=== PATIENT | male | born 1965 | race Caucasian/White ===

== ENCOUNTER 2023-02-23 15:37 | Inpatient (IN) ==
[2023-02-23 16:47] LABS: Basophils # (auto) 0.03 K/uL (0-0.2); Basophils % (auto) 0.4 %; Eosinophils # (auto) 0.12 K/uL (0-0.50); Eosinophils % (auto) 1.5 %; Hematocrit (blood only) 39.9 % (42.0-52.0); Hemoglobin 13.4 g/dl (14.0-18.0); Immature Granulocytes # (auto) 0.02 K/uL (0.01-0.20); Immature Granulocytes % (auto) 0.2 %; Lymphocytes # (auto) 2.04 K/uL (1.2-3.4); Lymphocytes % (auto) 24.8 %; Mean Corpuscular Hemoglobin 32.1 pg (25.0-34.0); Mean Corpuscular Hgb Conc 33.6 g/dL (32.0-36.0); Mean Corpuscular Volume 95.5 fL (80.0-100.0); Mean Platelet Volume 10.5 fL (9.4-12.4); Monocytes # (auto) 0.89 K/uL (0.11-0.59); Monocytes % (auto) 10.8 %; Neutrophils # (auto) 5.11 K/uL (1.40-6.50); Neutrophils % (auto) 62.3 %; Platelet Count 212 K/uL (130-400); RDW Coefficient of Variation 12.6 % (11.5-14.5); RDW Standard Deviation 44.8 fL (36.4-46.3); Red Blood Count 4.18 M/uL (4.70-6.10); White Blood Count 8.21 K/ul (4.8-10.8)
[2023-02-23 17:07] LABS: Albumin Globulin Ratio 1.4 (0.9-2); Albumin Level 4.1 gm/dl (3.4-5.0); Bilirubin,Total 0.2 mg/dl (0.2-1.0); Calcium 8.8 mg/dl (8.6-10.3); Creatinine Clr Calc Pharmacy 103.4 ml/min; Est GFR (African American) 103.8 ml/min; Est GFR (Non-African American) 89.5 ml/min; Globulin 2.9 gm/dl (2.5-4.0); Potassium 4.2 mmol/L (3.5-5.1)
[2023-02-23 17:13] LABS: Troponin I High Sensitivity 4.3 pg/ml (0-20)
[2023-02-23 17:15] LABS: Partial Thromboplastin Ratio 1.1; Partial Thromboplastin Time 29.8 Seconds (21.0-31.0); Prothrombin Time 10.5 Seconds (9.0-12.0)
--- NOTE | 2023-02-23 18:13 | XRay Report ---
SINGLE VIEW CHEST CLINICAL HISTORY: Atypical chest pain. FINDINGS: An AP, portable, upright chest radiograph is obtained. No prior studies are available for c omparison at the time of dictation. The heart is enlarged. There is pulmonary vascular congestion. Bi basilar opacities likely represent scarring/atelectasis. No large pleural effusion or pneumothorax is seen. The skeletal structures are osteopenic. The bony thorax is grossly intact. Fusion hardware is noted in the lower cervical spine. IMPRESSION: 1. Cardiomegaly with pulmonary vascular congestion. 2. Bibasilar opacities likely represent scarring/atelectasis. Clinical correlation will be required. ACT 112: Negative or not required by law. Electronically signed by: Rodrigo Barahona M.D. 02/23/2023 6:12 PM
[2023-02-23] MEDS ORDERED: ONDANSETRON INJ 2 MG/ML 2 ML VIAL IV STA (18:43)
--- NOTE | 2023-02-23 18:57 | Emergency Department Note ---
Impression & Plan Pulmonary embolism, Right-sided chest pain, Cough, Syncope and collapse ED Provider Note INFORMANT: Patient and family ED PROVIDER(S): Eitan Robles MD CHIEF COMPLAINT: Chest pain PLAN: Disposition: Admitted Condition: Guarded Outpatient prescription management: none Referral: None MEDICAL DECISION MAKING: Patient presented with right-sided chest pain. Work-up was initiated. Chest x- ray negative. ECG did not reveal any acute findings. Patient was treated with a dose of IV Dilaudid and Zofran. He was hydrated. Patient had a brief syncopal episode. He was reassessed. He had sinus bradycardia noted on cardiac monitoring which resolved. Repeat ECG showed a sinus rhythm. No ischemia.. And monitoring. Patient had an unremarkable CBC, chemistry panel, coags, and troponin. Patient D-dimer was elevated. He was sent for CT imaging of the chest was found to have pulmonary emboli with some mild inflammatory changes well. That would explain his chest pain in addition to his flulike symptoms. Patient was given a dose of IV Rocephin. He was started on IV heparin. Ultrasound imaging of the lower legs were ordered. Hypercoagulability blood work ordered. Patient and were updated. Further management in the hospital will be necessary. Patient did require additional Dilaudid for symptom control. Consultation was made with [facility] service. Patient was evaluated in the ER and admitted for further management. Discussed with fiscal services manager After review of the information above and other included data, I feel the patient requires admission. Triage Nursing notes reviewed and agree them. Vital Signs: reviewed and remarkable for no significant abnormalities Prior /Outside records reviewed: none Differential diagnosis: Pleurisy, cardiac ischemia, aortic dissection, pulmonary embolism, pneumothorax, pneumonia, pericarditis, myocarditis, esophageal rupture, GERD, cholecystitis, pancreatitis, musculoskeletal, as well as other pathologies. Diagnostics, as interpreted by me: ECG: The twelve-lead ECG reveals a normal sinus rhythm at [address] elevation or depression. No PACs PVCs. No prior for comparison. Repeat EC Lead ECG performed and revealed Normal sinus rhythm at 73 bpm, normal [place], QRS normal. No elevation or depression. No PACs or PVCs Cardiac Monitoring: Cardiac monitoring ordered by me: The patient was placed on continuous cardiac monitoring and observed. It revealed a normal sinus rhythm at 68 beats per minute without ectopy or evidence of dysrhythmia. Medical decision rules: Imaging studies: Chest x-ray. Findings: A chest x-ray was performed and revealed no pneumothorax, effusion, infiltrate, pulmonary edema, free air under the michael phragm, or wide mediastinum. Mild bibasilar scarring present. HPI: The patient is a 57year old male who presents to the Emergency Room with complaints of right-sided chest pain. This started about an hour prior to arrival and is wrapping around to the right mid back below the scapula. The patient also notes the following associated symptoms, cough and cold symptoms for several days and mild nausea. Patient states that he saw his doctor 3 days ago because of cold symptoms and tested negative for COVID. He was put on a Z- [place]. Patient does travel daily for work. No history of the same. The patient has found no relieving factors. Current pain is rated as 9/10. Pain worse with deep breathing. Pt denies LOC, headache, fevers, chills, diaphoresis, visual changes, neck pain, vomiting, abdominal pain, back pain, melena, hematochezia, urinary symptoms, numbness, weakness, lymphadenopathy, rash, or other complaints. PAST MEDICAL HISTORY: See Below, high cholesterol PAST SURGICAL HISTORY: See Below, SOCIAL HISTORY: See Below, HOME MEDICATIONS: See Below ALLERGIES: See Below VITALS: See Below PHYSICAL EXAMINATION: GENERAL: Awake, alert, uncomfortable-appearing, in no distress HENT: Normocephalic, atraumatic. Oropharynx unremarkable. EYES: Normal conjunctiva. Sclera non-icteric. NECK: Inspection normal. Non-tender. Supple. No nuchal rigidity. FROM. No masses. RESPIRATORY: Clear to auscultation. No wheezes. No rales. Normal respiratory effort. CARDIAC: Normal rate. Normal rhythm. No murmurs. No rubs. Extremities warm and well perfused. Pulses equal. No JVD. GI: Soft, non-distended. No tenderness to palpation. No rebound or guarding. No masses. MUSCULOSKELETAL: Atraumatic. Chest examination reveals right lateral and anterolateral rib tenderness. There is mild tenderness under the right scapula without deformity or visible abnormality. The back is symmetrical on inspection without obvious abnormality. There is no CVA tenderness to palpation. No joint edema. LOWER EXTREMITIES: Calves are equal size bilaterally and non-tender. No edema. No discoloration. NEURO: Normal sensorium. No sensory or motor deficits noted. SKIN: No rash or jaundice noted. CRITICAL CARE: I have personally spent greater than 50 minutes of critical care time in the direct management of this patient. This includes bedside care, interpretation of diagnostic studies, and testing, discussion with consultants, patient, and family members, and other required patient management activities. These minutes are in excess of all separately billable procedures. Past Med/Surg History Social History Smoking Status: Current every day smoker Cigarettes Per Day: 15; Hx Alcohol Use: Yes Hx Substance Use: No Preferred Language: Bulgarian Communication Ability: Effective Validation Leader Required: No Beliefs That Will Affect Care: None Current Living Situation: Alone Feels Safe at Home: Yes Allergies Allergies Allergy/AdvReac Type Severity Reaction Status Date / Time No Known Allergies Allergy Unverified 02/23/23 19:13 Home Meds Home Medications Medication Instructions Recorded Confirmed azithromycin 250 mg tablet 250 mg PO DAILY 02/23/23 02/23/23 simvastatin 20 mg tablet 20 mg PO HS 02/23/23 02/23/23 Results & Data (ED) Vital Signs Vital Signs - 24 hr 02/23/23 19:30 02/23/23 19:30 02/23/23 19:45 Temperature Temperature Source Pulse Rate Pulse Rate from SpO2 Sensor 71 Respiratory Rate Blood Pressure 126/70 126/78 Blood Pressure Mean 88 94 Pulse Oximetry 96 02/23/23 19:45 02/23/23 19:56 02/23/23 20:00 Temperature 37.1 C Temperature Source Oral Pulse Rate Pulse Rate from SpO2 Sensor 83 Respiratory Rate Blood Pressure 138/72 Blood Pressure Mean 94 Pulse Oximetry 97 02/23/23 20:00 02/23/23 20:15 02/23/23 20:15 Temperature Temperature Source Pulse Rate 82 84 Pulse Rate from SpO2 Sensor 81 84 Respiratory Rate 19 23 Blood Pressure 128/75 Blood Pressure Mean 92 Pulse Oximetry 97 99 02/23/23 20:30 02/23/23 20:30 Temperature Temperature Source Pulse Rate 81 Pulse Rate from SpO2 Sensor Respiratory Rate 22 Blood Pressure 129/78 Blood Pressure Mean 95 Pulse Oximetry Laboratory Data 02/23/23 16:27 02/23/23 16:27 Lab Results 02/23/23 02/23/23 02/23/23 Range/Units 16:27 16:27 16:27 WBC 8.21 (4.8-10.8) K/ul RBC 4.18 L (4.70-6.10) M/uL Hgb 13.4 L (14.0-18.0) g/dl Hct 39.9 L (42.0-52.0) % MCV 95.5 (80.0-100.0) fL MCH 32.1 (25.0-34.0) pg MCHC 33.6 (32.0-36.0) g/dL RDW Std Deviation 44.8 (36.4-46.3) fL RDW Coeff of Gertrudis 12.6 (11.5-14.5) % Plt Count 212 (130-400) K/uL MPV 10.5 (9.4-12.4) fL Immature Gran % (Auto) 0.2 % Neut % (Auto) 62.3 % Lymph % (Auto) 24.8 % [place] % (Auto) 10.8 % Eos % (Auto) 1.5 % Baso % (Auto) 0.4 % Neut # (Auto) 5.11 (1.40-6.50) K/uL Lymph # (Auto) 2.04 (1.2-3.4) K/uL [place] # (Auto) 0.89 H (0.11-0.59) K/uL Eos # (Auto) 0.12 (0-0.50) K/uL Baso # (Auto) 0.03 (0-0.2) K/uL Immature Gran # (Auto) 0.02 (0.01-0.20) K/uL PT 10.5 (9.0-12.0) Seconds INR 1.0 (0.9-1.1) APTT 29.8 (21.0-31.0) Seconds PTT Ratio 1.1 D-Dimer (0-500) ug/L FEU Sodium 138 (136-145) mmol/L Potassium 4.2 (3.5-5.1) mmol/L Chloride 106 (98-107) mmol/L Carbon Dioxide 26 (21-32) mmol/L Anion Gap 6 (3-11) BUN 13 (6-23) mg/dl Creatinine 0.93 (0.6-1.4) mg/dl Est Cr Clr Drug Dosing 103.4 ml/min Est GFR ( Amer) 103.8 ml/min Est GFR (Non-Af Amer) 89.5 ml/min BUN/Creatinine Ratio 14.0 (10-20) Glucose 91 (70-99(Fasting)) mg/dl Calcium 8.8 (8.6-10.3) mg/dl Total Bilirubin 0.2 (0.2-1.0) mg/dl AST 17 (13-39) U/L ALT 17 (7-52) U/L Alkaline Phosphatase 69 (34-104) U/L Troponin I High Sens 4.3 (0-20) pg/ml Total Protein 7.0 (6.0-8.3) gm/dl Albumin 4.1 (3.4-5.0) gm/dl Globulin 2.9 (2.5-4.0) gm/dl Albumin/Globulin Ratio 1.4 (0.9-2) 02/23/23 Range/Units 16:35 WBC (4.8-10.8) K/ul RBC (4.70-6.10) M/uL Hgb (14.0-18.0) g/dl Hct (42.0-52.0) % MCV (80.0-100.0) fL MCH (25.0-34.0) pg MCHC (32.0-36.0) g/dL RDW Std Deviation (36.4-46.3) fL RDW Coeff of Gertrudis (11.5-14.5) % Plt Count (130-400) K/uL MPV (9.4-12.4) fL Immature Gran % (Auto) % Neut % (Auto) % Lymph % (Auto) % [place] % (Auto) % Eos % (Auto) % Baso % (Auto) % Neut # (Auto) (1.40-6.50) K/uL Lymph # (Auto) (1.2-3.4) K/uL [place] # (Auto) (0.11-0.59) K/uL Eos # (Auto) (0-0.50) K/uL Baso # (Auto) (0-0.2) K/uL Immature Gran # (Auto) (0.01-0.20) K/uL PT (9.0-12.0) Seconds INR (0.9-1.1) APTT (21.0-31.0) Seconds PTT Ratio D-Dimer 2080 H* (0-500) ug/L FEU Sodium (136-145) mmol/L Potassium (3.5-5.1) mmol/L Chloride (98-107) mmol/L Carbon Dioxide (21-32) mmol/L Anion Gap (3-11) BUN (6-23) mg/dl Creatinine (0.6-1.4) mg/dl Est Cr Clr Drug Dosing ml/min Est GFR ( Amer) ml/min Est GFR (Non-Af Amer) ml/min BUN/Creatinine Ratio (10-20) Glucose (70-99(Fasting)) mg/dl Calcium (8.6-10.3) mg/dl Total Bilirubin (0.2-1.0) mg/dl AST (13-39) U/L ALT (7-52) U/L Alkaline Phosphatase (34-104) U/L Troponin I High Sens (0-20) pg/ml Total Protein (6.0-8.3) gm/dl Albumin (3.4-5.0) gm/dl Globulin (2.5-4.0) gm/dl Albumin/Globulin Ratio (0.9-2) Administered Medications Acetaminophen (Acetaminophen 325 Mg Tab) 650 mg PO Q6H PRN PRN Reason: pain (1,2,3), fever, headache Stop: 03/25/23 20:59 Last Admin: 02/24/23 08:52 Dose: 650 mg Documented By: MIGUEL A Apixaban (Apixaban 5 Mg Tablet) 10 mg PO BID [facility] Stop: 03/02/23 21:01 Last Admin: 02/24/23 10:18 Dose: 10 mg Documented By: MIGUEL A Azithromycin (Azithromycin 250 Mg Tab) 250 mg PO DAILY [facility] Stop: 02/27/23 08:59 Last Admin: 02/24/23 08:52 Dose: 250 mg Documented By: MIGUEL A Miscellaneous (Remove Nicoderm Patch) 1 each N/A DAILY@0859 [facility] Stop: 03/26/23 08:58 Last Admin: 02/24/23 08:53 Dose: Not Given Documented By: MIGUEL A Morphine Sulfate (Morphine Sulfate 2 Mg/Ml Carp) 1 mg IV Q4 PRN PRN Reason: Severe Pain (Scale 7, 8, 9,10) Stop: 03/10/23 09:57 Last Admin: 02/24/23 10:20 Dose: 1 mg Documented By: MIGUEL A Nicotine (Nicotine 14 Mg/24 Hr Patch) 14 mg TD QAM [facility] Stop: 03/26/23 08:59 Last Admin: 02/24/23 08:53 Dose: 14 mg Documented By: MIGUEL A Oxycodone HCl (Oxycodone Hcl Ir 5 Mg Tab (Immediate Release)) 5 mg PO Q6 PRN PRN Reason: Mild-Mod Pain (Scale 1-6) Stop: 03/10/23 09:55 Last Admin: 02/24/23 18:44 Dose: 5 mg Documented By: Admin: 02/24/23 12:11 Dose: 5 mg Documented By: MIGUEL A Simvastatin (Simvastatin 20 Mg Tab) 20 mg PO HS [facility] Stop: 03/26/23 00:30 Last Admin: 02/24/23 01:06 Dose: 20 mg Documented By: SOLOMON Discontinued Medications Heparin Sodium (Porcine) (Heparin Sod (Porcine) 1000 Unit/Ml) 4,000 units IV NOW ONE Stop: 02/23/23 20:46 Last Admin: 02/23/23 21:10 Dose: 4,000 units Documented By: DAWIT Co-signed By: FRED Hydromorphone HCl (Hydromorphone Inj 0.5 Mg/0.5 Ml Syr) 0.5 mg IV Q15M PRN PRN Reason: Pain Stop: 03/09/23 18:42 Last Admin: 02/23/23 20:58 Dose: 0.5 mg Documented By: Admin: 02/23/23 19:13 Dose: 0.5 mg Documented By: DAWIT Hydromorphone HCl (Hydromorphone Inj 0.5 Mg/0.5 Ml Syr) 0.5 mg IV Q2H PRN PRN Reason: Pain Stop: 03/10/23 00:59 Last Admin: 02/24/23 07:25 Dose: 0.5 mg Documented By: MIGUEL A Admin: 02/24/23 04:43 Dose: 0.5 mg Documented By: Admin: 02/24/23 02:35 Dose: 0.5 mg Documented By: SOLOMON Sodium Chloride (Nss 1000ml) 1,000 mls @ 999 mls/hr IV .Q1H1M ONE Stop: 02/23/23 20:27 Last Infusion: 02/23/23 21:29 Dose: 0 mls/hr Documented By: Admin: 02/23/23 19:30 Dose: 999 mls/hr Documented By: DAWIT Heparin Sodium/Dextrose (Heparin Sodium/Dextrose) 25,000 units in 500 mls @ 23 mls/hr IV .[id number] [facility]; Protocol Stop: 03/25/23 20:29 Last Titration: 02/24/23 10:17 Dose: 0 units/hr, 0 mls/hr Documented By: MIGUEL A Co-signed By: CARA Titration: 02/24/23 04:42 Dose: 1,150 units/hr, 23 mls/hr Documented By: SOLOMON Co-signed By: MICH Admin: 02/23/23 21:11 Dose: 1,000 units/hr, 20 mls/hr Documented By: DAWIT Co-signed By: FRED Sodium Chloride (Nss 1000ml) 1,000 mls @ 999 mls/hr IV .Q1H1M ONE Stop: 02/23/23 21:13 Last Infusion: 02/23/23 21:30 Dose: 0 mls/hr Documented By: Admin: 02/23/23 20:00 Dose: 999 mls/hr Documented By: DAWIT Ceftriaxone Sodium (Rocephin) 2,000 mg in 70 mls @ 140 mls/hr IV NOW STA Stop: 02/23/23 20:44 Last Infusion: 02/23/23 22:46 Dose: 0 mls/hr Documented By: Admin: 02/23/23 21:16 Dose: 140 mls/hr Documented By: DAWIT Heparin Sodium (Porcine) 3,000 (units/ Syringe) 3 mls @ 10 mls/min IV ONE ONE Stop: 02/24/23 04:46 Last Admin: 02/24/23 04:42 Dose: 10 mls/min Documented By: SOLOMON Co-signed By: MICH Ioversol (Optiray 320 500ml) 114 ml IV ONCE ONE Stop: 02/23/23 19:38 Last Admin: 02/23/23 19:38 Dose: 114 ml Documented By: JYOTI Ketorolac Tromethamine (Ketorolac Tromethamine 15 Mg/Ml Vial) 10 mg IV NOW ONE Stop: 02/23/23 20:14 Last Admin: 02/23/23 20:59 Dose: 10 mg Documented By: DAWIT Ondansetron HCl (Ondansetron Inj 2 Mg/Ml 2 Ml Vial) 4 mg IV NOW STA Stop: 02/23/23 18:44 Last Admin: 02/23/23 19:13 Dose: 4 mg Documented By: DAWIT Tramadol HCl (Tramadol Hcl 50 Mg Tablet) 50 mg PO Q4H PRN PRN Reason: Pain (4,5,6+) Stop: 03/25/23 20:54 Last Admin: 02/24/23 01:06 Dose: 50 mg Documented By: SOLOMON Imaging Data Radiologist's Impression: Chest X-Ray 02/23/23 15:51 SINGLE VIEW CHEST CLINICAL HISTORY: Atypical chest pain. FINDINGS: An AP, portable, upright chest radiograph is obtained. No prior studies are available for comparison at the time of dictation. The heart is enlarged. There is pulmonary vascular congestion. Bibasilar opacities likely represent scarring/atelectasis. No large pleural effusion or pneumothorax is s een. The skeletal structures are osteopenic. The bony thorax is grossly intact. Fusion hardware is noted in the lower cervical spine. IMPRESSION: 1. Cardiomegaly with pulmonary vascular congestion. 2. Bibasilar opacities likely represent scarring/atelectasis. Clinical correlation will be required. ACT 112: Negative or not required by law. Electronically signed by: Rodrigo Barahona M.D. 02/23/2023 6:12 PM Discharge Plan Visit Data Chief Complaint: Chest Pain Stated Complaint: CHEST PAIN, SOB ED Provider: Eitan Robles Discharge Problem: Pulmonary embolism, Right-sided chest pain, Cough, Syncope and collapse Patient Disposition: Admitted As Inpatient Discharge Instructions Interventions: ED Discharge Assessment Last Done: 02/24/23 00:48
[2023-02-23 19:00] LABS: D Dimer 2080 ug/L FEU (0-500)
[2023-02-23] MEDS: HYDROmorphone INJ 0.5 MG/0.5 ML SYR IV PRN ×2 (19:13→20:58)
[2023-02-23] MEDS ORDERED: SODIUM CHLORIDE 0.9% 1000ML 1,000 ML IV ONE ×2 (19:27→20:13)
[2023-02-23] MEDS ORDERED: OPTIRAY 320 500ml IV ONE (19:37)
--- NOTE | 2023-02-23 20:00 | CT Scan Report ---
CT ANGIOGRAM OF THE CHEST CLINICAL HISTORY: Pleuritic right-sided chest pain. COMPARISON STUDY: Chest x-ray dated 02/23/2023. TECHNIQUE: Following the IV administration of 114 cc of Optiray 320, CT angiogram of the chest was pe rformed from the upper abdomen to the thoracic inlet utilizing the pulmonary embolus protocol. Images are reviewed in the axial, sagittal, and coronal planes. 3-D MIPS images are created and assessed. I V contrast was administered without complication. A dose lowering technique was utilized adhering to the principles of ALARA. The examination is compromised by motion artifact. CT DOSE: 511.08 mGy.cm FINDINGS: Thyroid: Imaged portions of the thyroid gland are normal in size and attenuation. Thoracic aorta: The thoracic aorta is normal in caliber and demonstrates standard 3-vessel arch anato my. No dissection is seen. Pulmonary vasculature: The pulmonary trunk is normal in caliber. There are segmental and subsegmental pulmonary emboli within branches of the right upper lobe pulmonary artery. There are also likely seg mental and subsegmental emboli within branches of the right middle lobe pulmonary artery. Subsegmenta l pulmonary emboli are seen in the branches of the left upper lobe pulmonary artery. Evaluation of th e segmental and subsegmental branches in the lower lobes is severely degraded by motion artifact. Heart: The heart is enlarged and without pericardial effusion. Lungs and pleural spaces: Evaluation of the lung parenchyma is significantly degraded by motion artif act. There is mild emphysematous change. Patchy foci of tree-in-bud consolidation are seen within the upper lobes bilaterally, right greater than left. Scarring/atelectasis is noted at the lung bases. N o pleural effusion is seen. The trachea and central airways appear clear. Mediastinum: Mildly enlarged mediastinal lymph nodes measure up to 12 mm in short axis. [place]: There are mildly enlarged hilar nodes which measure up to 14 mm short axis. Axillae: There is no axillary lymphadenopathy. Upper abdomen: There is a tiny hiatal hernia. Partially visualized upper abdominal viscera is otherwi se within normal limits. Skeletal structures: The skeletal structures are osteopenic. Fusion hardware is noted in the lower ce rvical spine. Arthritic change is present in the shoulders. No lytic or blastic bony lesions are seen . IMPRESSION: 1. Motion compromised examination. 2. Bilateral segmental and subsegmental pulmonary emboli as above. 3. Cardiomegaly and mild emphysema. 4. Patchy groundglass/tree-in-bud opacities are seen in the upper lungs bilaterally, likely represent ing a mild infectious/inflammatory pneumonitis. 5. No pleural effusion. 6. Mildly enlarged mediastinal and hilar lymph nodes are nonspecific and likely reactive. 7. Additional findings as above. ACT 112: Negative or not required by law. Electronically signed by: Rodrigo Barahona M.D. 02/23/2023 7:57 PM
[2023-02-23] MEDS ORDERED: Heparin IV Adult Wt-Based Low-Dose WITH Bolus Protocol IV STA (20:13)
[2023-02-23] MEDS ORDERED: KETOROLAC TROMETHAMINE 15 MG/ML VIAL IV ONE (20:13)
[2023-02-23] MEDS ORDERED: cefTRIAXone SODIUM 2,000 MG/70 ML BAG IV STA (20:15)
[2023-02-23] MEDS ORDERED: HEPARIN SOD (PORCINE) 1000 UNIT/ML IV ONE ×2 (20:29→20:45)
[2023-02-23] MEDS ORDERED: HEPARIN SODIUM/DEXTROSE 25,000 UNITS/500 ML BAG IV SCH (20:30)
--- NOTE | 2023-02-23 20:33 | History & Physical Report ---
Date of Service February 23, 2023 Assessment & Plan (1) Pulmonary embolism: Plan: -Admit to med/tele -The patient is currently afebrile, hemodynamically stable, and stable on RA -Patient experienced right-sided pleuritic chest pain earlier today -D-dimer noted to be 2080, cardiac workup negative -CTA of the chest with PE protocol showed Bilateral segmental and subsegmental pulmonary emboli and Patchy groundglass/tree-in-bud opacities are seen in the upper lungs bilaterally, likely representing a mild infectious/inflammatory pneumonitis. -Started on a heparin drip with bolus by the ED, will continue with IV heparin overnight and can transition to PO regimen tomorrow -Hyper-coag workup ordered by the ED, follow-up -ED also ordered BL venous dopplers, will hold SCD's until imaging has been obtained -Patient has multiple risk factors including hyperlipidemia, current smoker, and frequent travel for his Job -Pain control with tylenol for mild pain and tramadol for severe pain -Prn O2 to keep SpO2 between 88-92% -Heparin for DVT PPX -AM CBC, BMP, PT/INR, PTT (2) Syncope: Plan: -The patient's brief syncopal episode is most likely due to a vaso-vagal episode due to his acute chest pain and receiving Dilaudid -No seizure activity, no arrhythmias on tele -Continue to monitor on tele (3) Pneumonia: Plan: -Patient developed URI symptoms earlier in the week and was started on a Z-pack by his PCP 2 days ago -CT of the chest today shows "Patchy groundglass/tree-in-bud opacities are seen in the upper lungs bilaterally, likely representing a mild infectious/inflammatory pneumonitis" -Will continue with Azithromycin to complete a 5 day course -Incentive spirometry and prn albuterol for wheezing/SOB (4) Dyslipidemia: Plan: -Continue simvastatin (5) Tobacco abuse: Plan: -Nicotine patch ordered -Continue to stress smoking cessation Plan The patient was discussed with Dr. Preciado at the time of the admission History of Present Illness Chief Complaint: Chest pain Primary Care Provider: NO PCP Lion is a 57 yeah old male with a PMH significant for tobacco abuse and hyperlipidemia who presented to the [facility] ED on 02/23/23 with a chief complaint of chest pain. The patient lives in [place] and was visiting his Son who goes to [facility]. In the ED the patient was found to be afebrile, hemodynamically stable, and stable on RA. Labs were remarkable for a WBC WNC, stable Hgb and platelets, D- dimer of 2080, stable renal function and electrolytes WNL, LFT's WNL, and high sen trop WNL. Chest xray was read as "1. Cardiomegaly with pulmonary vascular congestion. 2. Bibasilar opacities likely represent scarring/atelectasis. Clinical correlation will be required.". CTA of the chest was read as "1. Motion compromised examination. 2. Bilateral segmental and subsegmental pulmonary emboli as above. 3. Cardiomegaly and mild emphysema. 4. Patchy groundglass/tree-in-bud opacities are seen in the upper lungs bilaterally, likely representing a mild infectious/inflammatory pneumonitis. 5. No pleural effusion. 6. Mildly enlarged mediastinal and hilar lymph nodes are nonspecific and likely reactive. 7. Additional findings as above.". Prior to admission the patient was given 1L NSS, 0.5 mg IV dilaudid, 10 mg IV toradol, and 2gm IV Ceftriaxone. Per the ED staff, the patient had an episode of syncope prior to admission, he was sitting in bed and did not fall. At the time of the exam the patient was lying comfortably in bed in no acute distress with his sitting bedside, history was obtain from both. The patient confirmed that his only diagnosed medical condition is dyslipidemia and is on daily simvastatin. 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 He has been smoking for approximately 30 years and averages 1/2-1PPD. He states that they drove into town earlier today as it is parents weekend. Shortly after arriving in town he started to developed sharp/pleuritis chest pain, exacerbated with inspiration, with radiation to the right back/scapula. He tried to stretch as he thought it was a muscle pull but his symptoms progressed. He states that he developed URI symptoms including congestion, runny nose, and non-productive cough approximately 4 days ago. He went to his PCP and tested negative for Covid, he was stared on a Z-pack and has completed the first 2 days of treatment. When asked about his syncopal episode earlier in the ED he and his provided details. The patient had just relieved a dose of Dilaudid as he was having severe chest pain. Shortly after receiving the Dilaudid the patient was sat up in bed for a chest xray. His states that after being sat up the patient became pale and diaphoretic, he felt light headed and began to lose consciousness, the Xray techs laid him back in bed and he quickly regained co nsciousness. He did not have seizure-like activity or loss of bowel or bladder function. The patient notes that he was experiencing left calf pain earlier in the week, he thought it was due to muscle cramps. Please refer to Dr. Preciado's attestation for any changes to the treatment plan Allergies Allergy/AdvReac Type Severity Reaction Status Date / Time No Known Allergies Allergy Unverified 02/23/23 19:13 Home Medications Medication Instructions Recorded Confirmed Type azithromycin 250 mg tablet 250 mg PO DAILY 02/23/23 02/23/23 History simvastatin 20 mg tablet 20 mg PO HS 02/23/23 02/23/23 History Past Med/Surg History Social History Smoking Status: Current every day smoker Cigarettes Per Day: 15; Hx Alcohol Use: Yes Hx Substance Use: No Preferred Language: Kinyarwanda Communication Ability: Effective Associate Field Service Engineer Required: No Beliefs That Will Affect Care: None Current Living Situation: Alone Feels Safe at Home: Yes Review of Systems Review of Systems: Denies current fever, chills, headache, changes in vision, hearing, taste, and smell, abdominal pain, nausea, vomiting, diarrhea, hematemesis, melena, dysuria, hematuria, and recent trauma. All systems have been reviewed and are otherwise negative. Physical Exam Physical Exam: Physical Exam: General: In no acute distress, stated age, well-nourished, good hygiene HEENT: Normocephalic, atraumatic, no scleral icterus, pupils around round, symmetrical, and reactive to light, moist mucus membranes, trachea midline, no thyromegaly Chest/Pulm: No respiratory distress, severe pain with inspiration, symmetrical chest expansion, clear breath sounds throughout Cardiac: RRR, no murmurs noted Abdomen: Negative for ascites and bruising, normoactive bowel sounds, soft, non-tender to palpation throughout Musculoskeletal: Symmetrical and without signs of acute trauma, upper and lower extremities with full ROM, no atrophy, spasticity, or flaccidity Extremities: Radial, dorsalis pedis, and posterior tibial pulses are intact and symmetrical, no edema noted in the BL LE's Skin: Warm, dry, no rashes , lesions, or scars noted Neuro: Alert and oriented to person, place, month, year, and president, no focal defects, no tremors noted Psych: No acute distress, calm and cooperative during the exam Results & Data Results & Data Vital Signs (Past 12 Hours) Vital Signs Temp Pulse Pulse Resp BP BP Pulse Ox 02/23/23 19:56 37.1 C 02/23/23 19:20 38.2 C H 02/23/23 19:45 97 02/23/23 19:45 126/78 02/23/23 19:30 96 02/23/23 19:30 126/70 02/23/23 19:27 122/83 02/23/23 19:27 73 24 96 02/23/23 19:22 93/63 L 02/23/23 19:22 67 17 91 02/23/23 19:20 50 L 23 94 02/23/23 19:20 81/51 L 02/23/23 19:18 94/49 L 02/23/23 19:18 50 L 21 95 02/23/23 19:11 88 15 96 02/23/23 19:10 92 H 02/23/23 19:11 88 18 124/81 95 02/23/23 15:45 36.8 C 83 20 148/87 H 92 O2 Del Method 02/23/23 19:56 02/23/23 19:20 02/23/23 19:45 02/23/23 19:45 02/23/23 19:30 02/23/23 19:30 02/23/23 19:27 02/23/23 19:27 02/23/23 19:22 02/23/23 19:22 02/23/23 19:20 02/23/23 19:20 02/23/23 19:18 02/23/23 19:18 02/23/23 19:11 02/23/23 19:10 02/23/23 19:11 Room Air 02/23/23 15:45 Room Air Laboratory Results Abnormal lab results 02/23/23 02/23/23 Range/Units 16:27 16:35 RBC 4.18 L (4.70-6.10) M/uL Hgb 13.4 L (14.0-18.0) g/dl Hct 39.9 L (42.0-52.0) % [place] # (Auto) 0.89 H (0.11-0.59) K/uL D-Dimer 2080 H* (0-500) ug/L FEU Diagnostic Findings Chest X-Ray 02/23/23 15:51 SINGLE VIEW CHEST CLINICAL HISTORY: Atypical chest pain. FINDINGS: An AP, portable, upright chest radiograph is obtained. No prior studies are available for comparison at the time of dictation. The heart is enlarged. There is pulmonary vascular congestion. Bibasilar opacities likely represent scarring/atelectasis. No large pleural effusion or pneumothorax is seen. The skeletal structures are osteopenic. The bony thorax is grossly intact. Fusion hardware is noted in the lower cervical spine. IMPRESSION: 1. Cardiomegaly with pulmonary vascular congestion. 2. Bibasilar opacities likely represent scarring/atelectasis. Clinical correlation will be required. ACT 112: Negative or not required by law. Electronically signed by: Rodrigo Barahona M.D. 02/23/2023 6:12 PM Chest CTA 02/23/23 18:47 CT ANGIOGRAM OF THE CHEST CLINICAL HISTORY: Pleuritic right-sided chest pain. COMPARISON STUDY: Chest x-ray dated 02/23/2023. TECHNIQUE: Following the IV administration of 114 cc of Optiray 320, CT angiogram of the chest was performed from the upper abdomen to the thoracic inlet utilizing the pulmonary embolus protocol. Images are reviewed in the axial, sagittal, and coronal planes. 3-D MIPS images are created and assessed. IV contrast was administered without complication. A dose lowering technique was utilized adhering to the principles of ALARA. The examination is compromised by motion artifact. CT DOSE: 511.08 mGy.cm FINDINGS: Thyroid: Imaged portions of the thyroid gland are normal in size and attenuation. Thoracic aorta: The thoracic aorta is normal in caliber and demonstrates standard 3-vessel arch anatomy. No dissection is seen. Pulmonary vasculature: The pulmonary trunk is normal in caliber. There are segmental and subsegmental pulmonary emboli within branches of the right upper lobe pulmonary artery. There are also likely segmental and subsegmental emboli within branches of the right middle lobe pulmonary artery. Subsegmental pulmon bettye emboli are seen in the branches of the left upper lobe pulmonary artery. Evaluation of the segmental and subsegmental branches in the lower lobes is severely degraded by motion artifact. Heart: The heart is enlarged and without pericardial effusion. Lungs and pleural spaces: Evaluation of the lung parenchyma is significantly degraded by motion artifact. There is mild emphysematous change. Patchy foci of tree-in-bud consolidation are seen within the upper lobes bilaterally, right greater than left. Scarring/atelectasis is noted at the lung bases. No pleural effusion is seen. The trachea and central airways appear clear. Mediastinum: Mildly enlarged mediastinal lymph nodes measure up to 12 mm in short axis. Lucina: There are mildly enlarged hilar nodes which measure up to 14 mm short axis. Axillae: There is no axillary lymphadenopathy. Upper abdomen: There is a tiny hiatal hernia. Partially visualized upper abdominal viscera is otherwise within normal limits. Skeletal structures: The skeletal structures are osteopenic. Fusion hardware is noted in the lower cervical spine. Arthritic change is present in the shoulders. No lytic or blastic bony lesions are seen. IMPRESSION: 1. Motion compromised examination. 2. Bilateral segmental and subsegmental pulmonary emboli as above. 3. Cardiomegaly and mild emphysema. 4. Patchy groundglass/tree-in-bud opacities are seen in the upper lungs bilaterally, likely representing a mild infectious/inflammatory pneumonitis. 5. No pleural effusion. 6. Mildly enlarged mediastinal and hilar lymph nodes are nonspecific and likely reactive. 7. Additional findings as above. ACT 112: Negative or not required by law. Electronically signed by: Rodrigo Barahona M.D. 02/23/2023 7:57 PM ECG Additional Comments: Normal sinus rhythm Normal ECG No previous ECGs available Code Status & VTE Plan Code Status Full code VTE Prophylaxis Plan VTE Prophylaxis will be ordered: Yes Supervising Physician Co-Signing Physician Notes Patient seen and examined, chart reviewed, case discussed with LASHA Mujica and I agree with the assessment and plan as above. 57yo male with HLP, tobacco use presenting with bilateral PEs. Afebrile, HD stable, adequate oxygenation on room air Significant right sided pleuritic chest pain requiring IV analgesics Heparin gtt --> DOAC Patient is from [place] - he is instructed to followup with his primary care physician upon returning home Smoking cessation recommended Remainder as above PG Care Time/CCT Total # of Minutes Spent Total Time Spent with Patient: Total time spent is greater than 50% in coordination of care (as documented) at patient's floor/unit and/or counseling patient: Coding [place] [address] INT INP/OBS CARE 2MIN Patient Type Established Medical Decision Making Moderate Complexity Diagnoses Pulmonary embolism I26.99 Syncope R55 Pneumonia J18.9 Dyslipidemia E78.5 Tobacco abuse Z72.0
[2023-02-23] MEDS ORDERED: traMADol HCL 50 MG TABLET PO PRN (20:55)
[2023-02-23] MEDS ORDERED: ACETAMINOPHEN 325 MG TAB PO PRN (20:55)
[2023-02-23] MEDS ORDERED: ALBUTEROL 0.083% NEBU SOLN 3 ML VIAL NEB PRN (21:09)
[2023-02-23 23:06] LABS: Influenza A virus by PCR Negative (Neg); Influenza B virus by PCR Negative (Neg); RSV by PCR Negative (Neg); SARS CoV2 RNA(COVID-19) Ceph NEGATIVE (Negative)
--- NOTE | 2023-02-24 00:19 | Ultrasound Report ---
Exam(s): US VENOUS BILATERAL LOWER EXTREMITIES EXAM: US Duplex Bilateral Lower Extremities Veins CLINICAL HISTORY: Reason for exam: eval for dvt. TECHNIQUE: Real-time duplex ultrasound scan of the bilateral lower extremity veins integrating B-mode two-dimensional vascular structure, Doppler spectral analysis, color flow Doppler imaging and compression. COMPARISON: No relevant prior studies available. FINDINGS: Right deep veins: Unremarkable. No DVT in the right common femoral, femoral, proximal deep femoral or popliteal veins. The veins demonstrate normal color flow, are normally compressible, with normal phasic flow and/or augmentation response. Right superficial veins: Unremarkable. No thrombus in the visualized right great saphenous vein. Left deep veins: Unremarkable. No DVT in the left common femoral, femoral, proximal deep femoral or popliteal veins. The veins demonstrate normal color flow, are normally compressible, with normal phasic flow and/or augmentation response. Left superficial veins: Unremarkable. No thrombus in the visualized left great saphenous vein. Soft tissues: No acute findings. IMPRESSION: Normal bilateral lower extremity duplex venous ultrasound. Electronically signed by: Ed Garcia M.D. 02/24/23 00:18 AM
[2023-02-24] MEDS: SIMVASTATIN 20 MG TAB PO SCH ×2 (01:06→21:33)
[2023-02-24] MEDS: HYDROmorphone INJ 0.5 MG/0.5 ML SYR IV PRN ×3 (02:35→07:25)
[2023-02-24 03:12] LABS: Hematocrit (blood only) 35.2 % (42.0-52.0); Hemoglobin 11.7 g/dl (14.0-18.0); Mean Corpuscular Hemoglobin 31.7 pg (25.0-34.0); Mean Corpuscular Hgb Conc 33.2 g/dL (32.0-36.0); Mean Corpuscular Volume 95.4 fL (80.0-100.0); Mean Platelet Volume 10.4 fL (9.4-12.4); Platelet Count 179 K/uL (130-400); RDW Coefficient of Variation 12.7 % (11.5-14.5); RDW Standard Deviation 44.5 fL (36.4-46.3); Red Blood Count 3.69 M/uL (4.70-6.10); White Blood Count 7.16 K/ul (4.8-10.8)
[2023-02-24 03:30] LABS: BUN Creatinine Ratio 14.5 (10-20); Calcium 7.7 mg/dl (8.6-10.3); Creatinine Clr Calc Pharmacy 115.2 ml/min; Est GFR (African American) 111.6 ml/min; Est GFR (Non-African American) 96.3 ml/min; Potassium 3.9 mmol/L (3.5-5.1)
[2023-02-24 03:38] LABS: Partial Thromboplastin Ratio 1.4; Partial Thromboplastin Time 37.9 Seconds (21.0-31.0)
[2023-02-24] MEDS ORDERED: HEPARIN IV BOLUS 3,000 UNITS in SYRINGE 0 ML IV ONE (04:45)
[2023-02-24] MEDS: AZITHROMYCIN 250 MG TAB PO SCH (08:52)
[2023-02-24] MEDS: NICOTINE 14 MG/24 HR PATCH TD SCH (08:53)
[2023-02-24] MEDS ORDERED: MoRPHine SULFATE 2 MG/ML CARP IV PRN (09:58)
[2023-02-24] MEDS: APIXABAN 5 MG TABLET PO SCH ×2 (10:18→21:33)
[2023-02-24] MEDS: oxyCODONE HCL IR 5 MG TAB (IMMEDIATE RELEASE) PO PRN ×2 (12:11→18:44)
--- NOTE | 2023-02-24 12:32 | Electrocardiogram Report ---
Test Reason : Blood Pressure : / mmHG Vent. Rate : 080 BPM Atrial Rate : 080 BPM P-R Int : 142 ms QRS Dur : 086 ms QT Int : 374 ms P-R-T Axes : 058 -02 028 degrees QTc Int : 431 ms Normal sinus rhythm Normal ECG No previous ECGs available Confirmed by Remi Gómez ([id number]) on 02/24/2023 12:31:48 PM Referred By: Confirmed By:Remi Gómez
--- NOTE | 2023-02-24 13:36 | Electrocardiogram Report ---
Test Reason : Blood Pressure : / mmHG Vent. Rate : 073 BPM Atrial Rate : 073 BPM P-R Int : 130 ms QRS Dur : 088 ms QT Int : 380 ms P-R-T Axes : 026 027 041 degrees QTc Int : 418 ms Normal sinus rhythm Normal ECG When compared with ECG of 23-FEB-2023 15:49, (unconfirmed) No significant change was found Confirmed by Remi Gómez ([id number]) on 02/24/2023 1:36:03 PM Referred By: REFERRED SELF Confirmed By:Remi Gómez
--- NOTE | 2023-02-24 14:01 | Hospitalist Progress Note ---
Date of Service February 24, 2023 Assessment & Plan (1) Pulmonary embolism: Plan: Hemodynamically stable D-dimer elevated in the 2000's range. CTA chest showed bilateral segmental and subsegmental PE Symptomatic with pleuritic chest pain. Still using IV Dilaudid for pain relief Was initially started on a heparin drip, switched over to p.o. Eliquis this morning. Plan to discharge him on p.o. Eliquis. Venous duplex ultrasound was negative for DVT This was most likely provoked by prolonged car ride Outpatient hematology appointment to consider hypercoagulable work-up We will do a rest and exercise tomorrow We will ambulate him tomorrow (2) Syncope: Plan: -The patient's brief syncopal episode is most likely due to a vaso-vagal episode due to his acute chest pain and receiving Dilaudid -No seizure activity, no arrhythmias on tele -Continue to monitor on tele (3) Pneumonia: Plan: -Patient developed URI symptoms earlier in the week and was started on a Z-pack by his PCP 2 days ago -CT of the chest today shows "Patchy groundglass/tree-in-bud opacities are seen in the upper lungs bilaterally, likely representing a mild infectious/inflammatory pneumonitis" -Will continue with Azithromycin to complete a 5 day course -Incentive spirometry and prn albuterol for wheezing/SOB (4) Dyslipidemia: Plan: -Continue simvastatin (5) Tobacco abuse: Plan: -Nicotine patch ordered -Continue to stress smoking cessation Admission and Anticipated Discharge Date Admission Date: February 23, 2023 Subjective Patient complains of chest pain with inspiration. Denies shortness of breath. Spoke to the patient and his at the bedside Physical Exam Physical Exam: General: Awake, conversant Heart: S1, S2/regular rate and rhythm, no murmur rubs or gallops Lungs: Clear to auscultation bilaterally. Normal effort. Painful on deep inspiration Abdomen: Soft/nontender/nondistended. No hepatosplenomegaly Extremities: No clubbing/cyanosis. No edema Behavior: Appropriate, cooperative Results & Data Results & Data Vital Signs (Past 12 Hours) Vital Signs Temp Pulse Pulse Resp BP Pulse Ox O2 Del Method 02/24/23 11:31 36.7 C 61 18 137/84 96 Room Air 02/24/23 07:37 51 L 02/24/23 07:37 Nasal Cannula 02/24/23 07:13 36.7 C 65 18 132/75 95 Room Air 02/24/23 02:40 37.1 C 64 16 110/64 93 Nasal Cannula O2 Flow Rate 02/24/23 11:31 02/24/23 07:37 02/24/23 07:37 1 02/24/23 07:13 02/24/23 02:40 1 Laboratory Results Abnormal lab results 02/23/23 02/23/23 02/24/23 Range/Units 16:27 16:35 02:55 RBC 4.18 L (4.70-6.10) M/uL Hgb 13.4 L (14.0-18.0) g/dl Hct 39.9 L (42.0-52.0) % [place] # (Auto) 0.89 H (0.11-0.59) K/uL APTT 37.9 H (21.0-31.0) Seconds D-Dimer 2080 H* (0-500) ug/L FEU Chloride (98-107) mmol/L Glucose (70-99(Fasting)) mg/dl Calcium (8.6-10.3) mg/dl 02/24/23 02/24/23 Range/Units 02:55 02:55 RBC 3.69 L (4.70-6.10) M/uL Hgb 11.7 L (14.0-18.0) g/dl Hct 35.2 L (42.0-52.0) % [place] # (Auto) (0.11-0.59) K/uL APTT (21.0-31.0) Seconds D-Dimer (0-500) ug/L FEU Chloride 111 H (98-107) mmol/L Glucose 102 H (70-99(Fasting)) mg/dl Calcium 7.7 L (8.6-10.3) mg/dl Diagnostic Findings Chest X-Ray 02/23/23 15:51 SINGLE VIEW CHEST CLINICAL HISTORY: Atypical chest pain. FINDINGS: An AP, portable, upright chest radiograph is obtained. No prior studies are available for comparison at the time of dictation. The heart is enlarged. There is pulmonary vascular congestion. Bibasilar opacities likely represent scarring/atelectasis. No large pleural effusion or pneumothorax is seen. The skeletal structures are osteopenic. The bony thorax is grossly intact. Fusion hardware is noted in the lower cervical spine. IMPRESSION: 1. Cardiomegaly with pulmonary vascular congestion. 2. Bibasilar opacities likely represent scarring/atelectasis. Clinical correlation will be required. ACT 112: Negative or not required by law. Electronically signed by: Rodrigo Barahona M.D. 02/23/2023 6:12 PM Chest CTA 02/23/23 18:47 CT ANGIOGRAM OF THE CHEST CLINICAL HISTORY: Pleuritic right-sided chest pain. COMPARISON STUDY: Chest x-ray dated 02/23/2023. TECHNIQUE: Following the IV administration of 114 cc of Optiray 320, CT angiogram of the chest was performed from the upper abdomen to the thoracic inlet utilizing the pulmonary embolus protocol. Images are reviewed in the axial, sagittal, and coronal planes. 3-D MIPS images are created and assessed. IV contrast was administered without complication. A dose lowering technique was utilized adhering to the principles of ALARA. The examination is compromised by motion artifact. CT DOSE: 511.08 mGy.cm FINDINGS: Thyroid: Imaged portions of the thyroid gland are normal in size and attenuation. Thoracic aorta: The thoracic aorta is normal in caliber and demonstrates standard 3-vessel arch anatomy. No dissection is seen. Pulmonary vasculature: The pulmonary trunk is normal in caliber. There are segmental and subsegmental pulmonary emboli within branches of the right upper lobe pulmonary artery. There are also likely segmental and subsegmental emboli within branches of the right middle lobe pulmonary artery. Subsegmental pulmonary emboli are seen in the branches of the left upper lobe pulmonary artery. Evaluation of the segmental and subsegmental branches in the lower lobes is severely degraded by motion artifact. Heart: The heart is enlarged and without pericardial effusion. Lungs and pleural spaces: Evaluation of the lung parenchyma is significantly degraded by motion artifact. There is mild emphysematous change. Patchy foci of tree-in-bud consolidation are seen within the upper lobes bilaterally, right greater than left. Scarring/atelectasis is noted at the lung bases. No pleural effusion is seen. The trachea and central airways appear clear. Mediastinum: Mildly enlarged mediastinal lymph nodes measure up to 12 mm in short axis. [place]: There are mildly enlarged hilar nodes which measure up to 14 mm short axis. Axillae: There is no axillary lymphadenopathy. Upper abdomen: There is a tiny hiatal hernia. Partially visualized upper abdominal viscera is otherwise within normal limits. Skeletal structures: The skeletal structures are osteopenic. Fusion hardware is noted in the lower cervical spine. Arthritic change is present in the shoulders. No lytic or blastic bony lesions are seen. IMPRESSION: 1. Motion compromised examination. 2. Bilateral segmental and subsegmental pulmonary emboli as above. 3. Cardiomegaly and mild emphysema. 4. Patchy groundglass/tree-in-bud opacities are seen in the upper lungs bilaterally, likely representing a mild infectious/inflammatory pneumonitis. 5. No pleural effusion. 6. Mildly enlarged mediastinal and hilar lymph nodes are nonspecific and likely reactive. 7. Additional findings as above. ACT 112: Negative or not required by law. Electronically signed by: Rodrigo Barahona M.D. 02/23/2023 7:57 PM Venous Doppler Study 02/23/23 20:13 Exam(s): US VENOUS BILATERAL LOWER EXTREMITIES EXAM: US Duplex Bilateral Lower Extremities Veins CLINICAL HISTORY: Reason for exam: eval for dvt. TECHNIQUE: Real-time duplex ultrasound scan of the bilateral lower extremity veins integrating B-mode two-dimensional vascular structure, Doppler spectral analysis, color flow Doppler imaging and compression. COMPARISON: No relevant prior studies available. FINDINGS: Right deep veins: Unremarkable. No DVT in the right common femoral, femoral, proximal deep femoral or popliteal veins. The veins demonstrate normal color flow, are normally compressible, with normal phasic flow and/or augmentation response. Right superficial veins: Unremarkable. No thrombus in the visualized right great saphenous vein. Left deep veins: Unremarkable. No DVT in the left common femoral, femoral, proximal deep femoral or popliteal veins. The veins demonstrate normal color flow, are normally compressible, with normal phasic flow and/or augmentation response. Left superficial veins: Unremarkable. No thrombus in the visualized left great saphenous vein. Soft tissues: No acute findings. IMPRESSION: Normal bilateral lower extremity duplex venous ultrasound. Electronically signed by: Ed Garcia M.D. 02/24/23 00:18 AM PG Care Time/CCT Total # of Minutes Spent Total Time Spent with Patient: Total time spent is greater than 50% in coordination of care (as documented) at patient's floor/unit and/or counseling patient: Coding Level of Care Code 67395 SUB INP/OBS CARE 2/35MIN Diagnoses Pulmonary embolism I26.99 Syncope R55 Pneumonia J18.9 Dyslipidemia E78.5 Tobacco abuse Z72.0
[2023-02-25] MEDS: oxyCODONE HCL IR 5 MG TAB (IMMEDIATE RELEASE) PO PRN (01:06)
[2023-02-25 07:23] LABS: Hematocrit (blood only) 41.8 % (42.0-52.0); Hemoglobin 13.8 g/dl (14.0-18.0); Mean Corpuscular Hemoglobin 31.2 pg (25.0-34.0); Mean Corpuscular Volume 94.6 fL (80.0-100.0); Mean Platelet Volume 11.1 fL (9.4-12.4); Platelet Count 200 K/uL (130-400); RDW Coefficient of Variation 12.4 % (11.5-14.5); RDW Standard Deviation 43.2 fL (36.4-46.3); Red Blood Count 4.42 M/uL (4.70-6.10); White Blood Count 6.91 K/ul (4.8-10.8)
[2023-02-25 07:32] LABS: Prothrombin Time 10.8 Seconds (9.0-12.0)
[2023-02-25 07:35] LABS: BUN Creatinine Ratio 18.8 (10-20); Calcium 8.9 mg/dl (8.6-10.3); Creatinine Clr Calc Pharmacy 112.6 ml/min; Est GFR (African American) 110.5 ml/min; Est GFR (Non-African American) 95.4 ml/min; Potassium 4.4 mmol/L (3.5-5.1)
[2023-02-25] MEDS: APIXABAN 5 MG TABLET PO SCH (08:08)
[2023-02-25] MEDS: AZITHROMYCIN 250 MG TAB PO SCH (08:08)
[2023-02-25] MEDS: NICOTINE 14 MG/24 HR PATCH TD SCH (08:08)
--- NOTE | 2023-02-25 10:56 | Discharge Summary ---
Date of Service February 25, 2023 Admission HPI Per Admitting Provider Lion is a 57 yeah old male with a PMH significant for tobacco abuse and hyperlipidemia who presented to the [facility] ED on 02/23/23 with a chief complaint of chest pain. The patient lives in [place] and was visiting his Son who goes to [facility]. In the ED the patient was found to be afebrile, hemodynamically stable, and stable on RA. Labs were remarkable for a WBC WNC, stable Hgb and platelets, D- dimer of 2080, stable renal function and electrolytes WNL, LFT's WNL, and high sen trop WNL. Chest xray was read as "1. Cardiomegaly with pulmonary vascular congestion. 2. Bibasilar opacities likely represent scarring/atelectasis. Clinical correlation will be required.". CTA of the chest was read as "1. Motion compromised examination. 2. Bilateral segmental and subsegmental pulmonary emboli as above. 3. Cardiomegaly and mild emphysema. 4. Patchy groundglass/tree-in-bud opacities are seen in the upper lungs bilaterally, likely representing a mild infectious/inflammatory pneumonitis. 5. No pleural effusion. 6. Mildly enlarged mediastinal and hilar lymph nodes are nonspecific and likely reactive. 7. Additional findings as above.". Prior to admission the patient was given 1L NSS, 0.5 mg IV dilaudid, 10 mg IV toradol, and 2gm IV Ceftriaxone. Per the ED staff, the patient had an episode of syncope prior to admission, he was sitting in bed and did not fall. At the time of the exam the patient was lying comfortably in bed in no acute distress with his sitting bedside, history was obtain from both. The patient confirmed that his only diagnosed medical condition is dyslipidemia and is on daily simvastatin. 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 He has been smoking for approximately 30 years and averages 1/2-1PPD. He states that they drove into town earlier today as it is parents weekend. Shortly after arriving in town he started to developed sharp/pleuritis chest pain, exacerbated with inspiration, with radiation to the right back/scapula. He tried to stretch as he thought it was a muscle pull but his symptoms progressed. He states that he developed URI symptoms including congestion, runny nose, and non-productive cough approximately 4 days ago. He went to his PCP and tested negative for Covid, he was stared on a Z-pack and has completed the first 2 days of treatment. When asked about his syncopal episode earlier in the ED he and his provided details. The patient had just relieved a dose of Dilaudid as he was having severe chest pain. Shortly after receiving the Dilaudid the patient was sat up in bed for a chest xray. His states that after being sat up the patient became pale and diaphoretic, he felt light headed and began to lose consciousness, the Xray techs laid him back in bed and he quickly regained consciousness. He did not have seizure-like activity or loss of bowel or bladder function. The patient notes that he was experiencing left calf pain earlier in the week, he thought it was due to muscle cramps. Please refer to Dr. Preciado's attestation for any changes to the treatment plan Admission Exam Per Admitting Provider General:In no acute distress, stated age, well-nourished, good hygiene HEENT:Normocephalic, atraumatic, no scleral icterus, pupils around round, symmetrical, and reactive to light, moist mucus membranes, trachea midline, no thyromegaly Chest/Pulm:No respiratory distress, severe pain with inspiration, symmetrical chest expansion, clear breath sounds throughout Cardiac:RRR, no murmurs noted Abdomen:Negative for ascites and bruising, normoactive bowel sounds, soft, non-tender to palpation throughout Musculoskeletal:Symmetrical and without signs of acute trauma, upper and lower extremities with full ROM, no atrophy, spasticity, or flaccidity Extremities:Radial, dorsalis pedis, and posterior tibial pulses are intact and symmetrical, no edema noted in the BL LE's Skin:Warm, dry, no rashes , lesions, or scars noted Neuro:Alert and oriented to person, place, month, year, and president, no focal defects, no tremors noted Psych:No acute distress, calm and cooperative during the exam Principal Diagnosis Acute bilateral PE Discharge Exam General: Awake, conversant Heart: S1, S2/regular rate and rhythm, no murmur rubs or gallops Lungs: Clear to auscultation bilaterally. Normal effort. Painful on deep inspiration Abdomen: Soft/nontender/nondistended. No hepatosplenomegaly Extremities: No clubbing/cyanosis. No edema Behavior: Appropriate, cooperative Discharge Data Allergies Allergy/AdvReac Type Severity Reaction Status Date / Time No Known Allergies Allergy Unverified 02/23/23 19:13 Consultations 02/23/23 20:29 ED Decision to Admit Stat Ordered Studies 02/23/23 18:47 CT angio chest PE protocol Stat 02/23/23 20:13 US venous doppler LE Stat Hospital Course (1) Pulmonary embolism: Hemodynamically stable D-dimer elevated in the 2000's range. CTA chest showed bilateral segmental and subsegmental PE Symptomatic with pleuritic chest pain. Not using IV narcotics for pain anymore Was initially started on a heparin drip, switched over to p.o. Eliquis. Will discharge on p.o. Eliquis. Venous duplex ultrasound was negative for DVT This was most likely provoked by prolonged car ride Outpatient hematology appointment to consider hypercoagulable work-up Ambulatory sats completed, not needing oxygen to go home with Not dizzy or lightheaded (2) Syncope: -The patient's brief syncopal episode is most likely due to a vaso-vagal episode due to his acute chest pain and receiving Dilaudid -No seizure activity, no arrhythmias on tele (3) Pneumonia: -Patient developed URI symptoms earlier in the week and was started on a Z-pack by his PCP 2 days ago -CT of the chest today shows "Patchy groundglass/tree-in-bud opacities are seen in the upper lungs bilaterally, likely representing a mild infectious/inflammatory pneumonitis" -Continued azithromycin during the hospital stay. Completed course. -Looks short of breath (4) Dyslipidemia: -Continue simvastatin (5) Tobacco abuse: -Nicotine patch ordered during the hospital stay -Continue to stress smoking cessation Total Time Total Time Spent Total Time Spent (In Minutes): 35 Discharge Plan Discharge Items Patient Disposition: Home - Self-Care Reason For Visit: CHEST PAIN Discharge Diagnosis: Pulmonary Embolus (blood clot in lung) Activity: Resume your previous activity Non-emergency contact: Primary Care Provider Call non-emergency contact if: you have any medication questions, your symptoms worsen and your pain is not controlled Follow-up/Referrals: PCP,NO [Primary Care Provider] - Diet: Heart Healthy Addtl Attending Provider Instructions: Advised to follow-up with PCP in 1 week Advised to follow-up with letter carrier in 1 month Advised to note that you are being discharged on a blood-thinner Pending Studies at Discharge: No Stand-Alone Forms: My [facility], Smoking Cessation Medications and DC Order Prescriptions: New Eliquis 5 mg Tablet 10 mg PO BID Qty: 60 0RF Rx Instructions: 2 tabs every 12 hours for 6 days, followed by 1 tab every 12 hours thereafter Continued simvastatin 20 mg tablet 20 mg PO HS Discontinued azithromycin 250 mg tablet 250 mg PO DAILY Discharge Orders: Discharge Order (Routine); Ordered 02/25/23 Ordered By: Megan Johns Admission Data Admit Date/Time: 02/23/23 20:33 Attending Provider: Megan Johns Admit Provider: Courtney Preciado Primary Care Provider: PCP,NO Other Providers: Courtney Preciado Other Interventions: Discharge Summary Assessment (RN) Last Done: 02/25/23 11:43 Coding Level of Care Code 44889 INP/OBS DISCH >30 MIN Diagnoses Pulmonary embolism I26.99 Syncope R55 Pneumonia J18.9 Dyslipidemia E78.5 Tobacco abuse Z72.0
--- NOTE | 2023-02-28 12:18 | Coding Query ---
CODING QUERY To promote full compliance with coding requirements relating to patient care, provider participation is requested in all cases of instrument lens grinder uncertainty. Please assist us with the question(s) below: Coding Question(s): There is documentation regarding Pneumonia in the record, and as on the Discharge Summary of, "Pneumonia: -Patient developed URI symptoms earlier in the week and was started on a Z-pack by his PCP 2 days ago -CT of the chest today shows "Patchy groundglass/tree-in-bud opacities are seen in the upper lungs bilaterally, likely representing a mild infectious/inflammatory pneumonitis" -Continued azithromycin during the hospital stay. Completed course. -Looks short of breath". Please specify below, in your clinical opinion, regarding Pneumonia during this admission: ( ) Acute Pneumonia was monitored closely and/or treated during this admission ( X ) Pneumonia was treated as outpatient and continued during this admission with no further treatment or monitoring during this admission ( ) Other: Please Specify Physician's Response(s): PNA treated as outpatient and continued during this admission Thank you Emma Ya Principal Diagnosis: "that condition established after study, to be chiefly responsible for occasioning the admission of the patient to the hospital for care." Co-Existing Principal Diagnosis: "when two or more diagnoses equally meet the criteria for principal diagnosis as determined by the circumstances of admission, diagnostic work up, and/or therapy provided, and the Alphabetic Index, Tabular List, or another coding guideline does not provide sequencing direction, any one of the diagnoses may be sequenced first." "When the physician has documented what appears to be a current diagnosis in the body of the record, but has not included the diagnosis in the final diagnostic statement, the physician should be asked whether the diagnosis should be added." (Source Coding Clinic 2 QTR90. p3-4) TARIK
[2023-03-03 00:08] LABS: Anti Cardiolipin Ab IgG <2.0 GPL-U/mL; Anti Cardiolipin Ab IgM <2.0 MPL-U/mL; Anti-Thrombin III Activity 112 % normal (80-135); B2 Glycoprotein IgG <2.0 U/mL (<20.0); B2 Glycoprotein IgM <2.0 U/mL (<20.0); PTT LA Screen 34 sec (<=40); Protein S Functional(Activity) 85 % normal (70-150)
[2023-03-05 15:47] LABS: Factor 5 Mutation NEGATIVE
== END 2023-02-25 12:43 | disposition home or self-care (01) | DRG 176 ==
LOC: ED 15:37 → 2E 20:33 → SUATTDRO 20:33 → 2E 02-24 00:48 → 2N 02-24 14:45